=== PATIENT | female | born 1990 | race Caucasian/White ===

== ENCOUNTER → 2022-05-24 17:21 | Outpatient (BNVA) | payer BC, SELFPAY | PROVIDERS: PCP Nurse Practitioner Family; Visit Provider Emergency Medicine | DX: N30.01 Acute cystitis with hematuria (principal); J40 Bronchitis, not specified as acute or chronic | CPT/HCPCS: 81000 ==

== ENCOUNTER → 2022-12-19 13:16 | Outpatient (BNVA) | payer BC, SELFPAY | PROVIDERS: PCP Nurse Practitioner Family; Visit Provider Nurse Practitioner Family | DX: J01.90 Acute sinusitis, unspecified (principal); B96.89 Other specified bacterial agents as the cause of diseases classified elsewhere; J40 Bronchitis, not specified as acute or chronic; H69.83 Other specified disorders of Eustachian tube, bilateral | CPT/HCPCS: 87071; 87880 ==

== ENCOUNTER → 2024-07-13 17:40 | Outpatient (BNVA) | payer OTHER, BC, SELFPAY | PROVIDERS: PCP Nurse Practitioner Family; Visit Provider Emergency Medicine | DX: R30.0 Dysuria (principal); N30.01 Acute cystitis with hematuria | CPT/HCPCS: 81000; 87086 ==

== ENCOUNTER → 2025-08-11 15:18 | Outpatient (BNVA) | payer BC, SELFPAY | PROVIDERS: PCP Nurse Practitioner Family; Visit Provider Emergency Medicine | DX: J02.9 Acute pharyngitis, unspecified (principal) | CPT/HCPCS: 87880 ==